=== PATIENT | female | born 1980 | race Caucasian/White ===

== ENCOUNTER 2020-10-17 08:44 | Outpatient (REF) | payer MEDICAID, SELFPAY | END 2020-10-17 08:45 | disposition home or self-care (01) | LOC: HO.HOSX 08:44 | PROVIDERS: Visit Provider Orthopaedic Surgery | DX: Z13.89 Encounter for screening for other disorder (principal) ==

== ENCOUNTER 2020-11-03 08:10 | Outpatient (REF) | payer MEDICAID, SELFPAY | END 2020-11-03 08:11 | disposition home or self-care (01) | LOC: HO.HOSX 08:10 | PROVIDERS: Visit Provider Orthopaedic Surgery | DX: Z13.89 Encounter for screening for other disorder (principal) ==